=== PATIENT | female | born 1975 | race Two or more races ===

== ENCOUNTER 2023-02-08 07:00 | Day surgery (SDC) | payer OTHER ==
[2023-02-08] MEDS ORDERED: DICLOFENAC POTA50 MG PO (14:46)
== END 2023-02-08 17:50 | disposition home or self-care (01) ==
LOC: CIR.AMB 07:00
PROVIDERS: ATTEND Obstetrics & Gynecology
DX: Z30.2 Encounter for sterilization (principal); N83.8 Other noninflammatory disorders of ovary, fallopian tube and broad ligament; Z64.0 Problems related to unwanted pregnancy; Z20.822 Contact with and (suspected) exposure to COVID-19